=== PATIENT | female | born 1935 | race Caucasian/White ===

== ENCOUNTER 2018-12-04 08:23 | Outpatient (CLI) | payer MEDICARE, OTHER ==
[~2018-12-04] VITALS: Ht 175.3 cm; Wt 60.3 kg
[2018-12-04] VITALS (8 sets, daily range): BP systolic 145–167; BP diastolic 61–83
[~2018-12-04 08:23] MED LIST: ASPI-630 PO; CEFP200T PO; DIGO125T79 PO; LEVO25TA4 PO
[2018-12-04] MEDS ORDERED: MULT-650 PO (08:43)
[2018-12-04] MEDS ORDERED: APIX2.5T PO (08:43)
[2018-12-04] MEDS ORDERED: HYDR-2761 PO (08:43)
[2018-12-04 09:14] LABS: BASO # 0.1 x10^3/uL (0.0-0.2); BASO % 1 % (0-3); EOS # 0.2 x10^3/uL (0.0-0.7); EOS % 3 % (0-3); HEMATOCRIT 38.9 % (36.0-47.0); HEMOGLOBIN 12.7 g/dL (12.0-15.5); LYMPH # 1.3 x10^3/uL (1.0-4.8); LYMPH % 23 % (24-48); MEAN CORPUSCULAR HEMOGLOBIN 29 pg (25-35); MEAN CORPUSCULAR HGB CONC 33 g/dL (31-37); MEAN CORPUSCULAR VOLUME 89 fL (79-100); MONO # 0.5 x10^3/uL (0.0-1.1); MONO % 9 % (0-9); NEUT # 3.6 x10^3uL (1.8-7.7); NEUT % 65 % (31-73); PLATELET COUNT 277 x10^3/uL (140-400); RED CELL DISTRIBUTION WIDTH 13.5 % (11.5-14.5); WHITE BLOOD COUNT 5.6 x10^3/uL (4.0-11.0)
[2018-12-04] MEDS ORDERED: MIDAZOLAM HCL/PF 2 MG/2 ML VIAL. ONE ×2 (09:16→10:23)
[2018-12-04] MEDS ORDERED: fentaNYL PF VIAL 100 MCG/2 ML VIAL ONE ×2 (09:16→10:24)
[2018-12-04 09:20] LABS: CALCIUM 9.1 mg/dL (8.5-10.1); CREATININE 1.3 mg/dL (0.6-1.0); GFR 38.9
[2018-12-04 09:25] LABS: PROTHROMBIN TIME PATIENT 12.8 SEC (11.7-14.0)
[2018-12-04] MEDS ORDERED: MIDAZOLAM HCL/PF 2 MG/2 ML VIAL. IV ONE (09:30)
[2018-12-04] MEDS ORDERED: fentaNYL PF VIAL 100 MCG/2 ML VIAL IV ONE (09:30)
[2018-12-04] MEDS ORDERED: LIDOCAINE WITH 8.4% SOD BICARB 3 ML DISP.SYRIN. IJ ONE (09:30)
[2018-12-04] MEDS ORDERED: LIDOCAINE WITH 8.4% SOD BICARB 3 ML DISP.SYRIN. ONE (09:39)
[2018-12-04] MEDS ORDERED: CONTRAST GIVEN. MC PRN (09:45)
[2018-12-04] MEDS ORDERED: IOHEXOL 240 MG/ML 50ML VIAL. IJ ONE (09:45)
--- NOTE | 2018-12-04 10:38 | PDOC ---
BRIEF OPERATIVE NOTE Pre-Op Diagnosis L1 compression fracture, osteoporosis Post-Op Diagnosis same Procedure Performed L1 kyphoplasty Surgeon Anthony Anesthesia Type: Conscious Sedation Findings L1 compression fracture Complications No immediate WILBER NELSON MD Dec 04, 2018 10:38
--- NOTE | 2018-12-04 10:40 | PDOC ---
MODERATE SEDATION ASSESSMENT RISKS/ALTERNATIVES Risks/Alternatives Risks and alternatives of this type of sedation and procedure discussed with: RISK/ALTERNATIVES: Patient H & P ON CHART H & P H & P on chart and reviewed for co-morbid conditions and appropriate labs. H&P ON CHART: Yes STATUS PREG STATUS ASSESSED: Yes MEDS/ALLERGIES REVIEWED Meds/Allergies Reviewed Medications and Allergies including time and route of recently administered narcotics and sedatives. MEDS/ALLERGIES REVIEWED: Yes ASA RATING ASA RATING: II AIRWAY ASSESSMENT Airway Assessment Airway patency, oral function limitations, presence of caps, crowns, dentures, partials, and ability to extend neck assessed. AIRWAY ASSESSMENT: Yes MALLAMPATI SCORE MALLAMPATI SCORE: II PRE-SEDATION ASSESSMENT PRE-SEDATION ASSESSMENT: Yes WILBER NELSON MD Dec 04, 2018 10:40
--- NOTE | 2018-12-04 10:40 | PDOC1 ---
History and Physical Date of Procedure Date of Admission Procedure Procedure L1 kyphoplasty Indication Indication L1 compression fracture and osteoporosis Past Medical History Past Medical History see nursing pre-op assessment Current Medications Current Medications Current Medications Midazolam HCl (Versed) 2 mg STK-MED ONCE .ROUTE ; Start 12/04/18 at 09:16; Stop 12/04/18 at 09:17; Status DC Fentanyl Citrate (Fentanyl 2ml Vial) 100 mcg STK-MED ONCE .ROUTE ; Start 12/04/18 at 09:16; Stop 12/04/18 at 09:17; Status DC Lidocaine/Sodium Bicarbonate (Buffered Lidocaine 1%) 3 ml 1X ONCE IJ ; Start 12/04/18 at 09:30; Stop 12/04/18 at 09:31; Status DC Midazolam HCl (Versed) 2 mg 1X ONCE IV ; Start 12/04/18 at 09:30; Stop 12/04/18 at 09:31; Status DC Fentanyl Citrate (Fentanyl 2ml Vial) 100 mcg 1X ONCE IV ; Start 12/04/18 at 09:30; Stop 12/04/18 at 09:31; Status DC Cefazolin Sodium 50 ml @ 100 mls/hr 1X ONCE IV Last administered on 12/04/18at 09:30; Start 12/04/18 at 09:30; Stop 12/04/18 at 09:59; Status DC Cefazolin Sodium 50 ml @ As Directed STK-MED ONCE IV ; Start 12/04/18 at 09:30; Stop 12/04/18 at 09:31; Status DC Iohexol (Omnipaque 240 Mg/ml) 50 ml 1X ONCE IJ ; Start 12/04/18 at 09:45; Stop 12/04/18 at 09:46; Status DC Lidocaine/Sodium Bicarbonate (Buffered Lidocaine 1%) 3 ml STK-MED ONCE .ROUTE ; Start 12/04/18 at 09:39; Stop 12/04/18 at 09:40; Status DC Info (CONTRAST GIVEN -- Rx MONITORING) 1 each PRN DAILY PRN MC SEE COMMENTS; Start 12/04/18 at 09:45; Stop 12/06/18 at 09:44 Midazolam HCl (Versed) 2 mg STK-MED ONCE .ROUTE ; Start 12/04/18 at 10:23; Stop 12/04/18 at 10:24; Status DC Fentanyl Citrate (Fentanyl 2ml Vial) 100 mcg STK-MED ONCE .ROUTE ; Start 12/04/18 at 10:24; Stop 12/04/18 at 10:25; Status DC Active Scripts Active Lanoxin (Digoxin) 125 Mcg Tablet 125 Mcg PO DAILY Reported Centrum Silver Women Tablet (Multivits-Min/Iron/FA/Lutein) 1 Each Tablet 1 Tab PO DAILY Hydrocodone-Apap 5-325 (Hydrocodone Bit/Acetaminophen) 1 Tab Tablet 0.5 Tab PO PRN Q6HRS PRN Eliquis (Apixaban) 2.5 Mg Tablet 2.5 Mg PO BID Levothyroxine Sodium 25 Mcg Tablet 1 Tab PO DAILY Allergies Allergies: Coded Allergies: No Known Drug Allergies (Unverified , 03/03/16) Physical Exam Vital Signs Vital Signs Date Time Temp Pulse Resp B/P (MAP) Pulse Ox O2 Delivery O2 Flow Rate FiO2 12/04/18 08:52 98.1 60 26 157/83 (107) 100 Room Air 98.1 Other see nursing pre-op assessment Assessment Assessment L1 compression fracture Plan Plan Kyphoplasty WILBER NELSON MD Dec 04, 2018 10:40
--- NOTE | 2018-12-04 12:41 | NUR ---
pt ambulated without difficulty. States back pain is gone. discharge paperwork reviewed with pt and family
--- NOTE | 2018-12-04 14:43 | RAD ---
Procedure: Kyphoplasty of L1 Clinical Indication: 83-year-old with acute debilitating wedge compression fracture of L1, osteoporosis. Sedation: Conscious sedation was administered with a total intraprocedural [id number] time of 25 minutes. The patient was monitored by a qualified independent observer throughout the time of sedation. Please refer to the medical record for exact doses of medications utilized to achieve moderate sedation. Antibiotics: Antibiotic was administered intravenously within 1 hour of the procedure start time. Exposure: Kerma-Area Product: 1881 uGycm2 Sterility: The procedure was performed in its entirety using appropriate elements of sterile technique. Consent: The procedure was explained in its entirety to the patient or the patients designated personal financial representative by a member of the treatment team, including a discussion of the risks, benefits and commonly accepted alternatives to the procedure, as well as the expected consequences of no therapy whatsoever. Discussion of the risks included, but was not limited to, those that are most frequent and those that are rare but possibly severe or life-threatening, as well as the possibility of unforeseen complications. Technique and Findings: Following informed consent, the patient was prepped and draped in usual sterile fashion. 1% lidocaine was used to achieve local anesthesia over the left paraspinal soft tissues. A small dermatotomy was made. Under fluoroscopic guidance, a 10-gauge kyphoplasty needle was advanced in a left transpedicular fashion to the anterior aspect of the L1 vertebral body. A balloon was then used to create a cavity within the vertebral body. Polymethylmethacrylate was instilled throughout the vertebral body. Upon completion, the needle was removed and hemostasis was achieved with manual compression. Complications: No immediate Impression: 1. Fluoroscopic guided kyphoplasty of L1 as described.
== END 2018-12-04 13:04 | disposition home or self-care (01) ==
LOC: INTRAD 08:23
PROVIDERS: ATTEND Surgery
DX: M80.88XA Other osteoporosis with current pathological fracture, vertebra(e), initial encounter for fracture (principal); M54.5 Low back pain; Z79.899 Other long term (current) drug therapy; Z79.01 Long term (current) use of anticoagulants
CPT/HCPCS: 22514; 36415; 80048; 85025; 85610; 99152; 99153; C1713; C1725; C1892; J0690; J2250; J3010; Q9966

== ENCOUNTER → 2021-08-04 | Outpatient (CLI) | payer MEDICARE, OTHER ==
[~2021-08-04] VITALS: Ht 175.3 cm; Wt 59.0 kg
[~2021-08-04] MED LIST changes: +ANAS1TAB47 PO; +APIX2.5T PO; +DRON400T6 PO; +HYDR-2761 PO; +IOHEXOL 240 MG/ML 50ML VIAL. IJ ONE; +IOHEXOL 240 MG/ML 50ML VIAL. ONE; +LIDOCAINE WITH 8.4% SOD BICARB 3 ML DISP.SYRIN. IJ ONE; +LIDOCAINE WITH 8.4% SOD BICARB 3 ML DISP.SYRIN. ONE; +MIDAZOLAM HCL/PF 2 MG/2 ML VIAL. IV ONE; +MIDAZOLAM HCL/PF 2 MG/2 ML VIAL. ONE; +MULT-650 PO; +ceFAZolin SODIUM IV Push 1 GM VIAL. IVP ONE; +fentaNYL PF VIAL 100 MCG/2 ML VIAL IV ONE; +fentaNYL PF VIAL 100 MCG/2 ML VIAL ONE
[2021-08-04 10:36] VITALS: BP 156/66
--- NOTE | 2021-08-04 11:08 | RAD ---
EXAM: Chest, single view. HISTORY: Port placement. COMPARISON: Thoracic spine CT dated 08/03/2021 FINDINGS: A frontal view of the chest is obtained. There is a right chest wall port catheter with the tip overlying the expected location of the superior cavoatrial junction. There is a right perihilar mass or masslike consolidation. There is emphysema. The heart is normal in size. 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 There is a cardiac pacemaker. There is no pneum othorax or pleural effusion. IMPRESSION: 1. Right port catheter with the tip overlying expected location of the superior cavoatrial junction. 2. Right perihilar mass or masslike consolidation superimposed on emphysema. Electronically signed by: Kaykay Polanco MD (08/04/2021 11:06 AM) [id number]
[2021-08-04 11:17] LABS: BASO % 1 % (0-3); EOS # 0.2 x10^3/uL (0.0-0.7); EOS % 4 % (0-3); HEMATOCRIT 39.7 % (36.0-47.0); HEMOGLOBIN 12.8 g/dL (12.0-15.5); LYMPH # 1.1 x10^3/uL (1.0-4.8); LYMPH % 20 % (24-48); MEAN CORPUSCULAR HEMOGLOBIN 30 pg (25-35); MEAN CORPUSCULAR HGB CONC 32 g/dL (31-37); MEAN CORPUSCULAR VOLUME 91 fL (79-100); MONO # 0.5 x10^3/uL (0.0-1.1); MONO % 9 % (0-9); NEUT # 3.5 x10^3/uL (1.8-7.7); NEUT % 66 % (31-73); PLATELET COUNT 167 x10^3/uL (140-400); RED BLOOD COUNT 4.35 x10^6/uL (3.50-5.40); RED CELL DISTRIBUTION WIDTH 15.1 % (11.5-14.5); WHITE BLOOD COUNT 5.3 x10^3/uL (4.0-11.0)
[2021-08-04 11:19] LABS: PROTHROMBIN TIME PATIENT 12.4 SEC (11.7-14.0)
[2021-08-04 12:25] VITALS: BP 152/70
[2021-08-04 12:40] VITALS: BP 140/68
[2021-08-04 12:55] VITALS: BP 133/60
[2021-08-04 13:08] VITALS: BP 126/61
--- NOTE | 2021-08-05 14:41 | RAD ---
08/05/2021 PROCEDURES: 1. Fluoroscopic guided T8 kyphoplasty. Clinical Indication: Pathologic compression fracture of the T8 vertebral body secondary to osteoporos is. Patient has severe pain, refractory to conservative treatment measures, preventing normal activit ies of daily living. Consent: The procedure was explained in its entirety to the patient or the patients designated repres entative by a member of the treatment team, including a discussion of the risks, benefits and commonl y accepted alternatives to the procedure, as well as the expected consequences of no therapy whatsoev er. Discussion of the risks included, but was not limited to, those that are most frequent and thos e that are rare but possibly severe or life-threatening, as well as the possibility of unforeseen com plications. The posterior thorax was prepped and draped using maximal sterile technique and 1% Xylocaine used for local topical anesthesia and deep periosteal anesthesia. Pre-procedural antibiotics were administer ed. Sedation: Conscious sedation was performed for 43 minutes. Sedation was carried out while the patie nt was continually monitored by a member of the Radiology nursing staff. Continual cardiopulmonary m onitoring was carried out during the procedure. The patient tolerated the procedure well and there w ere no immediate complications. Utilizing careful fluoroscopic biplane positioning, the T8 pedicles were identified. Using a left sided unilateral approach, a trocar needle was advanced into the anterior third of the T 8 vertebral body. Needle placement was confirmed in both the AP and lateral projections. Next the introducer stylet was removed. A kyphoplasty balloon was placed into the vertebral body and the coaxial needle was withdrawn. The balloon was inflated under fluoroscopic guidance to insure that there was no damage to the vertebral body endplates. When an adequate cavity had been formed by the ballon it was deflated and removed through the coaxial needle. Under very careful biplane fluoroscopic guidance, polymethylmethacrylate was carefully injected into the T8 vertebral body filling the cavity formed by the balloon as well as some of the surrounding tra beculae. No abnormal extravasation was identified. Following the cement injections, the needle was removed, pressure placed, and hemostasis obtained. No evidence of cement extrusion into the tract was identified. No immediate complications were identifi ed. Total fluoroscopy time: 9.8 minutes Dose area product 82.9 Johnston centimeter squared IMPRESSION: Fluoroscopically guided kyphoplasty, T8 Electronically signed by: Jose Francisco Randall MD (08/05/2021 2:39 PM) [id number]
== END | disposition home or self-care (01) ==
LOC: INTRAD 10:02
PROVIDERS: ATTEND Physical Medicine & Rehabilitation
DX: S22.060A Wedge compression fracture of T7-T8 vertebra, initial encounter for closed fracture (principal); I48.91 Unspecified atrial fibrillation; I10 Essential (primary) hypertension; E03.9 Hypothyroidism, unspecified; Z79.899 Other long term (current) drug therapy; Z98.890 Other specified postprocedural states; X58.XXXA Exposure to other specified factors, initial encounter; Y93.89 Activity, other specified; Y92.89 Other specified places as the place of occurrence of the external cause; Y99.8 Other external cause status
CPT/HCPCS: 22513; 36415; 71045; 85025; 85610; 99152; 99153; C1713; J0690; J2250; J3010; J3490; Q9966

== ENCOUNTER → 2021-09-08 | Outpatient (CLI) | payer MEDICARE, OTHER ==
[2021-08-04 13:08] VITALS: BP 126/61
[~2021-09-08] MED LIST changes: +IBUP200C9 PO; +IOHEXOL 180 MG/ML 10 ML VIAL. ONE; -IOHEXOL 240 MG/ML 50ML VIAL. IJ ONE; -IOHEXOL 240 MG/ML 50ML VIAL. ONE; -LIDOCAINE WITH 8.4% SOD BICARB 3 ML DISP.SYRIN. IJ ONE; -LIDOCAINE WITH 8.4% SOD BICARB 3 ML DISP.SYRIN. ONE; -MIDAZOLAM HCL/PF 2 MG/2 ML VIAL. IV ONE; -MIDAZOLAM HCL/PF 2 MG/2 ML VIAL. ONE; -ceFAZolin SODIUM IV Push 1 GM VIAL. IVP ONE; -fentaNYL PF VIAL 100 MCG/2 ML VIAL IV ONE; -fentaNYL PF VIAL 100 MCG/2 ML VIAL ONE; +methylPREDNISolone ACETATE 80 MG/ML VIAL. ONE
--- NOTE | 2021-09-08 12:03 | PDOC1 ---
INITIAL PAIN CONSULT DATE OF SERVICE: DOS: DATE: 09/08/21 TIME: 11:55 CHIEF COMPLAINT: Chief Complaint: Mid back and bilateral flank pain HISTORY OF PRESENT ILLNESS: 85-year-old female presents with history of pain mid back for about 1 month not result of any specific injury or accident that she is aware of, but had a T8 compression fracture diagnosed which has since been treated earlier this month with a vertebroplasty. Patient reports the procedure went well but the pain is still persistent. Patient was sent to a pain clinic at outside facility and received an injection in her back but reports it did not have any effect. Patient reports that she still has significant pain in the mid upper back in the midline for the most part but radiates to the bilateral right and left flanks wi th activity bending walking standing change positions better with sitting or laying down generally does not awaken her from sleep at night when she is changing positions especially standing for prolonged periods or twisting or bending with the upper back and she notices the pain much more patient also feels that she is slightly off balance and feels somewhat unstable when the pain is at its worse with walking but is not had any falls or stumbling. Patient reports it is not effective bowel bladder control but does affect her ability to walk. Patient is denied any other treatments except for the vertebroplasty also is doing some stretching on her own and using ice packs as well. Patient is taking hydrocodone which does decrease the pain to a moderate extent and ibuprofen which helps but only very minimally as well. 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 PAST MEDICAL HISTORY: PMH: Hypothyroidism, arthritis, breast cancer status post chemotherapy and radiation PREVIOUS SURGERIES: Past Surgical Hx: Pacemaker placement, partial hysterectomy, appendectomy, T8 kyphoplasty CURRENT MEDICATIONS: Current Meds: Active Scripts Medications Dose Route/Sig Max Daily Dose Days Date Category Advil (Ibuprofen) 200 Mg Capsule 200 Mg PO PRN PRN 09/08/21 Reported Multaq (Dronedarone Hcl) 400 Mg Tablet 1 Tab PO BID 08/04/21 Reported Centrum Silver Women Tablet (Multivits-Min/Iron/FA/Lutein) 1 Each Tablet 1 Tab PO DAILY 12/04/18 Reported Hydrocodone-Apap 5-325 (Hydrocodone Bit/Acetaminophen) 1 Tab Tablet 0.5 Tab PO PRN Q6HRS PRN 12/04/18 Reported Levothyroxine Sodium 25 Mcg Tablet 1 Tab PO DAILY 03/03/16 Reported ALLERGIES; Allergies: Coded Allergies: No Known Drug Allergies (Unverified , 03/03/16) FAMILY HISTORY: Family Hx: No major medical problems or conditions that she lists. SOCIAL HISTORY: Social Hx: Patient is nondrug alcohol does not smoke not use any illegal illicit or recreational drugs is lives with her spouse and 1 adult child living at home and lives locally in [facility]. REVIEW OF SYSTEMS: ROS: Positive for those items mentioned in history of present illness, all systems are reviewed, otherwise negative ,and are complete full and well-documented on patient's chart. PHYSICAL EXAM: VS: Blood pressure is 152/80 pulse 77 respirations 18 temperature 98.7 F height 5 feet 9 inches weight is 128 pounds PE: PHYSICAL EXAMINATION: GENERAL: The patient is awake, alert, oriented, appropriate, very pleasant in demeanor HEENT: Shows normocephalic, atraumatic. Extraocular movements are intact and symmetrical. Oral cavity: Mucous membranes moist and pink. NECK: Shows anterior throat supple without palpable lymphadenopathy noted. Swallow reflex symmetrical. CHEST: Shows normal on inspection. Breath sounds are clear bilaterally, no rales rhonchi or wheezes auscultated. HEART: Shows S1, S2 clear. No murmurs auscultated. ABDOMEN: Soft, nontender, nondistended. No palpable organomegaly is noted. BACK: Shows spine grossly in the midline. Normal-appearing cervical lordotic curvature. There is slightly increased thoracic kyphosis, some minor flattening of the lumbar lordotic curvature. Thoracic paraspinous muscles show symmetrical inspection fairly firm in the mid upper distribution of the paraspinous musculature but without specific trigger points. Spinous processes themselves show significant tenderness in the mid distribution of the thoracic spine as well as the mid to lower distribution still fairly tender over the spinous processes in the midline but without specific radiation on palpation. Patient shows good rotation motion of the thoracic spine with some moderate tenderness with extension as well as with forward flexion in the mid lower thoracic distribution but without specific radiation. Lumbar paraspinous muscles show symmetrical on inspection, on palpation shows some moderate tenderness diffusely throughout the upper, middle and lower distribution of the paraspinous muscles without specific trigger points, without radiation of pain. The patient has good rotational motion of the lumbar spine, both laterally as well as extension and flexion without significant difficulty. No tenderness over the spinous processes, sacrum or sacroiliac regions. EXTREMITIES: Lower extremities show deep tendon reflexes 2+ in the patellar and tendo calcaneus tendons. Motor exam is 5 on a scale of 5 with right dorsiflexion, extension, quadriceps and hamstring flexion and 5/5 on the left. Peripheral pulses are 1+ posterior tibial. No peripheral edema is noted bilaterally. Lower extremities are warm and dry to touch, equal in color and appearance. Upper extremity show deep tendon reflexes 2+ in the bicep tricep tendons, motor exam is strong with clinical specialist vascular strength rated 5 out of 5 as is bicep and tricep flexion bilaterally. SKIN: Shows warm and dry, good turgor. No edema. No sores, rashes or bruising throughout. IMPRESSION: Impression: 85-year-old female with approximate 1 month history of pain mid upper back status post kyphoplasty with T8 compression fracture, with persistent thoracic pain and radiculopathy bilaterally. Plain films thoracic spine as noted Arthritis Osteopenia History of breast cancer Plan: Options were discussed with the patient and patient's who accompanied her visit today including conservative medical management continued physical therapies and interventional techniques. Patient would like to pursue interventional techniques. We discussed a thoracic epidural steroid injection using descriptions as well as anatomical models to describe the procedure. Risks were discussed including but not limited to: Bleeding, infection, possibility of epidural hematoma and subsequent neurological compromise, dural puncture, headaches, spinal cord and/or nerve damage, side effects of steroid medication, and poor results regarding pain control. Patient understands and wished to proceed. Patient will return to clinic in approximately 2 weeks for follow-up, was counseled as to return appointment, activity level, and side effect to be aware of. Procedure is thoracic epidural steroid injection under local anesthetic using sterile prep and drape at the T7-8 level using C-arm fluoroscopic guidance in both AP and lateral views medications injected is 120 mg Depo-Medrol +10mL preservative-free normal saline and 2 mL contrast- condition at discharge is stable patient tolerated procedure well had no complications. RAJI RICKS MD Sep 08, 2021 12:03
--- NOTE | 2021-09-08 12:04 | PDOC4 ---
Procedure Note: ICD 10 Code: ICD 10 Code: M54.14 S22.000 Procedure Note: Patient was consented for thoracic epidural steroid injection with fluoroscopic guidance. Risks were discussed including but not limited to: Bleeding, infection, possibility of epidural hematoma and subsequent neurological compromise, dural puncture, headaches, spinal cord and/or nerve damage, side effects of steroid medication, and poor results regarding pain control. Patient understands and wished to proceed. Procedure is thoracic epidural steroid injection under local anesthetic using sterile prep and drape at the T7-8 level using C-arm fluoroscopic guidance in both AP and lateral views medications injected is 120 mg Depo-Medrol +10mL preservative-free normal saline and 2 mL contrast- condition at discharge is stable patient tolerated procedure well had no complications. RAJI RICKS MD Sep 08, 2021 12:03
== END | disposition home or self-care (01) ==
LOC: PNCL 09:41
PROVIDERS: ATTEND Anesthesiology
DX: M54.14 Radiculopathy, thoracic region (principal); R10.9 Unspecified abdominal pain; E03.9 Hypothyroidism, unspecified; M19.90 Unspecified osteoarthritis, unspecified site; Z85.3 Personal history of malignant neoplasm of breast; Z90.710 Acquired absence of both cervix and uterus; Z98.890 Other specified postprocedural states; Z79.899 Other long term (current) drug therapy
CPT/HCPCS: 62321; J1040; Q9965

== ENCOUNTER 2021-09-16 14:45 | Inpatient (IN) | payer MEDICARE, OTHER ==
[~2021-09-16] VITALS: Ht 175.3 cm; Wt 58.0 kg
[~2021-09-16 14:45] MED LIST changes: -IOHEXOL 180 MG/ML 10 ML VIAL. ONE; -methylPREDNISolone ACETATE 80 MG/ML VIAL. ONE
[2021-09-16 15:20] VITALS: BP 137/70
[2021-09-16] MEDS ORDERED: BISACODYL 10 MG SUPP.RECT. PR PRN (15:45)
[2021-09-16] MEDS ORDERED: ACETAMINOPHEN 650 MG SUPP.RECT. PR PRN (15:45)
[2021-09-16] MEDS ORDERED: fentaNYL PF VIAL 100 MCG/2 ML VIAL IVP PRN ×3 (15:45→16:00)
--- NOTE | 2021-09-16 15:46 | PDOC1 ---
History and Physical Date of Admission Date of Admission DATE: 09/16/21 TIME: 15:44 Identification/Chief Complaint Chief Complaint Abdominal pain Source Source: Chart review, Patient History of Present Illness History of Present Illness Ms Temple is an 85-year-old female with a past medical history significant for adenocarcinoma of right lung s/p radiation, paroxysmal afib and SSS (bradycardia arrhythmia with pacemaker), hypothyroidism, prior hemorrhagic CVA 2016 who presents to the emergency department at [facility] in [place], [place] c/o severe abdominal pain and constipation. C/o no BM for 4 days. Notes pain is 6 out of 10, dull and achy in nature. Has associated distention. Denies any recent travel, traumas, illnesses, fevers, chest pain, shortness of breath nausea diarrhea, dysuria, hematuria or blood in the stool. Denies any numbness/weakness/tingling. No change in diet. She did have an L1 fracture 5 weeks prior to admit and is s/o kyphoplasty but had persistent pain and had an LESI from pain management and has since been started on hydrocodone. WBC 11.6, Hb 13.5, platelets 150, NA 135, K4.4, BUN 54, CR 1.2, glucose 131, lactate 1, calcium 8.3, bilirubin 0.5, AST 23, ALT 45, alk phos 79, high- sensitivity troponin is 20, CRP is 160, albumin 2.7, lipase 115, rapid COVID-19 negative, rapid influenza negative, COVID-19 PCR negative, urinalysis bland. EKG sinus rate 81 bpm with some PVCs. QTc [address] abdomen with dilated small bowel with a transition zone suggesting partial small bowel obstruction. Chest radiograph with emphysema and right upper lobe cavitary lesion. Due to worsening of her abdominal pain a repeat CT abdomen/pelvis was performed without contrast which revealed intraperitoneal free air concerning for perforation of small bowel. Swirled appearance of the mesenteric root and mildly dilated lower abdominal small bowel loops concerning for small bowel volvulus or internal hernia. She was transferred to [facility] for further surgical evaluation. Seen bedside she complains of no pain and notes she just had 2 bowel movements. Does still have pain on palpation and distention of her abdomen. Past Medical History Cardiovascular: AFIB Pulmonary: No pertinent hx CENTRAL NERVOUS SYSTEM: CVA, Dementia Heme/Onc: Cancer (lung) Hepatobiliary: No pertinent hx Psych: No pertinent hx Musculoskeletal: low back pain, Weakness Rheumatologic: No pertinent hx Infectious disease: No pertinent hx Renal/: No pertinent hx Endocrine: Hypothyroidism Past Surgical History Past Surgical History: Appendectomy, Other Family History Family History: Other Social History Smoke: Quit ALCOHOL: none Drugs: None Current Medications Current Medications Active Scripts Active Reported Advil (Ibuprofen) 200 Mg Capsule 200 Mg PO PRN PRN Multaq (Dronedarone Hcl) 400 Mg Tablet 1 Tab PO BID Centrum Silver Women Tablet (Multivits-Min/Iron/FA/Lutein) 1 Each Tablet 1 Tab PO DAILY Hydrocodone-Apap 5-325 (Hydrocodone Bit/Acetaminophen) 1 Tab Tablet 0.5 Tab PO PRN Q6HRS PRN Levothyroxine Sodium 25 Mcg Tablet 1 Tab PO DAILY Allergies Allergies: Coded Allergies: No Known Drug Allergies (Unverified , 03/03/16) ROS General: No: Chills, Night Sweats, Fatigue, Malaise, Appetite, Other PSYCHOLOGICAL ROS: No: Anxiety, Behavioral Disorder, Concentration difficultie, Decreased libido, Depression, Disorientation, Hallucinations, Hostility, Irri tablity, Memory difficulties, Mood Swings, Obsessive thoughts, Physical abuse, Sexual abuse, Sleep disturbances, Suicidal ideation, Other Eyes: No Blurry vision, No Decreased vision, No Double vision, No Dry eyes, No Excessive tearing, No Eye Pain, No Itchy Eyes, No Loss of vision, No Photophobia, No Scotomata, No Uses contacts, No Uses glasses, No Other HEENT: No: Heacaches, Visual Changes, Hearing change, Nasal congestion, Nasal discharge, Oral lesions, Sinus pain, Sore Throat, Epistaxis, Sneezing, Snoring, Tinnitus, Vertigo, Vocal changes, Other ALLERGY AND IMMUNOLOGY: No: Hives, Insect Bite Sensitivity, Itchy/Watery Eyes, Nasal Congestion, Post Nasal Drip, Seasonal Allergies, Other Hematological and Lymphatic: No: Bleeding Problems, Blood Clots, Blood Transfusions, Brusing, Night Sweats, Pallor, Swollen Lymph Nodes, Other ENDOCRINE: No: Breast Changes, Galactorrhea, Hair Pattern Changes, Hot Flashes, Malaise/lethargy, Mood Swings, Palpitations, Polydipsia/polyuria, Skin Changes, Temperature Intolerance, Unexpected Weight Changes, Other Respiratory: YES: Shortness of breath; No: Cough, Hemoptysis, Orthopnea, Pleuritic Pain, SOB with excertion, Sputum Changes, Stridor, Tachypnea, Wheezing, Other Cardiovascular: No Chest Pain, No Palpitations, No Orthopnea, No Paroxysmal Noc. Dyspnea, No Edema, No Lt Headedness, No Other Gastrointestinal: Yes Nausea, Yes Abdominal Pain, Yes Constipation; No Vomiting, No Diarrhea, No Melena, No Hematochezia, No Other Genitourinary: No Dysuria, No Frequency, No Incontinence, No Hematuria, No Retention, No Discharge, No Urgency, No Pain, No Flank Pain, No Other, No , No , No , No , No , No , No Musculoskeletal: No Gait Disturbance, No Joint Pain, No Joint Stiffness, No Joint Swelling, No Muscle Pain, No Muscular Weakness, No Pain In:, No Swelling In:, No Other Neurological: No Behavorial Changes, No Bowel/Bladder ControlChng, No Confusion, No Dizziness, No Gait Disturbance, No Headaches, No Impaired Coord/ba barbara, No Memory Loss, No Numbness/Tingling, No Seizures, No Speech Problems, No Tremors, No Visual Changes, No Weakness, No Other Skin: No Dry Skin, No Eczema, No Hair Changes, No Lumps, No Mole Changes, No Mottling, No Nail Changes, No Pruritus, No Rash, No Skin Lesion Changes, No Other, No Acne Physical Exam General: Alert, Cooperative, mild distress HEENT: Atraumatic, PERRLA, EOMI, Mucous membr. moist/pink Lungs: Other (bilateral scattered wheezes) Heart: S1S2, RRR, no thrills, no rubs, no gallops, no murmurs Abdomen: Soft, No hepatosplenomegaly, No masses, Other (decreased bowel sounds, LLQ tender) Rectal Exam: not examined Extremities: No clubbing, No cyanosis, No edema, Normal pulses, No tend erness/swelling Skin: No rashes, No breakdown, No significant lesion Neuro: Normal gait, Normal speech, Strength at 5/5 X4 ext, Normal tone, Sensation intact, Cranial nerves 3-12 NL, Reflexes 2+ Psych/Mental Status: Mental status NL, Mood NL Images Images CT OF THE ABDOMEN AND PELVIS WITH IV CONTRAST. There is patchy opacity in the right lung base medially. There is multiple dilated loops of proximal and mid small bowel and more collapsed distal small bowel with a transition zone seen anteriorly in left pelvis image #[id number]. The appendix is not well seen. The gallbladder appears normal. Liver: Unremarkable Spleen: Unremarkable Pancreas: Unremarkable Adrenal Glands: Unremarkable Kidneys: Bilateral cysts There is no mass or lymphadenopathy. There is no free air. There is no free fluid. The urinary bladder contains a small amount of air but otherwise appears normal. There is an old L1 vertebral body compression fracture with previous vertebroplasty. Impression: 1. Right basilar infiltrate could be discoid atelectasis or early pneumonia. 2. Air in the urinary bladder is likely from instrumentation. There is also small focus of air in the endometrial uterus which could be iatrogenic. 3. Dilated small bowel with a transition zone suggesting partial small bowel obstruction. Chest radiograph: COMPARISON: 02/13/2020. FINDINGS: A frontal view of the chest is obtained. A right-sided port catheter has its tip in the superior cavoatrial junction. A left-sided pacemaker has its leads in the right atrium and right ventricle. A cavitary lesion within the superior segment of the right lower lobe measures approximately 5.5 cm and is better seen on CT. Hyperinflation is consistent with chronic obstructive pulmonary disease. There is mild right volume loss. There is no pneumothorax or pleural effusion. The heart is not enlarged. There are atherosclerotic calcifications of the aorta. An atrial appendage closure clip and mid thoracic vertebroplasty changes are noted. IMPRESSION: 1. Refer to prior CT for description of a right-sided cavitary lesion. Ongoing follow-up is recommended. 2. Chronic obstructive pulmonary disease. CT ABDOMEN+PELVIS WO History: Pain improved, question partial small bowel obstruction resolution. Comparison: CT abdomen and pelvis 09/16/2021. Technique: Noncontrast CT of the abdomen and pelvis. Findings: Posterior right lower lobe bleb/pulmonary cyst with adjacent mild bronchiectas is. Dual chamber pacemaker leads. Atrial appendage clip seen on road equipment operator view only. The liver is unremarkable. Layering density within the gallbladder, likely vicarious contrast excretion. The pancreas, spleen and adrenal glands are unremarkable. Mild renal cortical atrophy. Bilateral excretory nephrograms ureters are unremarkable. Bilateral renal cysts. The bladder is within normal limits. Uterus and adnexa are unremarkable. There are scattered foci of anterior dependent free air in the abdomen and pelvis. Trace pelvic free fluid. Mild mesenteric inflammation. The stomach is unremarkable. Small bowel loops appear mildly distended, perhaps less conspicuous than comparison, possible transition point in the right upper pelvis (axial 78). There is a swirling appearance of the lower small bowel mesentery concerning for internal hernia or volvulus. Fluid within the ascending colon. No colonic wall thickening. Mild descending and sigmoid diverticulosis. Unopacified vasculature demonstrates atherosclerotic calcification. No adenopathy. Decreased osseous mineralization in the spine and pelvis. Multilevel degenerative changes. Kyphoplasty changes at L1. Impression: 1. Intraperitoneal free air concerning for perforation of small bowel. Swirled appearance of the mesenteric root and mildly dilated lower abdominal small bowel loops concerning for small bowel volvulus or internal hernia. VTE Prophylaxis Ordered VTE Prophylaxis Devices: Yes VTE Pharmacological Prophylaxi: Yes Assessment/Plan Assessment/Plan A/P: SBO - noted on CT. Keep NPO. General surgery consulted. IV pain and nausea control Free air in abdomen - likely microperforation from diverticulum. Will monitor. IV zosyn. supportive care, surgery consult Constipation - had a BM immediately upon arrival, may be starting to resolve already Fatigue - check TSH, dosing of levothyroxine Abnormal UA - will f/u culture results Abnormal CXR - likely from prior history of lung ca treatment. Patient and her are vague about the details H/o CVA - prior left basal ganglia hemorrhage 2016 Paroxsymal Afib s/p pacemaker, atrial appendage clipping. Sinus currently Hypothyroidism - on levothyroxine, will check TSH H/o adenocarcinoma of right lung s/p radiation SSS (bradycardia arrhythmia with pacemaker) FEN - NPO PPX - Heparin FULL CODE Dispo -inpatient Justifications for Admission Other Justification MEGHA BRUCE MD Sep 16, 2021 15:46
[2021-09-16] MEDS ORDERED: MORPHINE SULFATE 2 MG/ML INJ. IVP PRN (16:00)
[2021-09-16] MEDS ORDERED: PROCHLORPERAZINE 10 MG/2 ML VIAL. IVP PRN (16:00)
[2021-09-16] MEDS ORDERED: HYDROmorphone 2 MG/ML INJ. IVP PRN (16:00)
[2021-09-16] MEDS ORDERED: IV RINGERS,LACTATED 1000ML 1,000 ML IV SCH (16:00)
[2021-09-16] MEDS: HEPARIN for SUB-Q USE 5,000 UNIT/ML VIAL. SQ SCH ×2 (16:00→22:30)
[2021-09-16] MEDS: POTASSIUM CL 20MEQ D5-0.45NACL 1,000 ML IV SCH (16:55)
[2021-09-16] MEDS: PIPERACILLIN/TAZOBACTAM 3.375 GM in IV NORMAL SALINE 50ML 50 ML IV SCH (16:55)
--- NOTE | 2021-09-16 18:55 | PDOC2 ---
CONSULT Date of Consult Date of Consult DATE: 09/16/21 TIME: 18:49 Reason for Consult Reason for Consult: Abnormal CT scan findings Referring Physician Referring Physician: Jose Identification/Chief Complaint Chief Complaint Not been able to have a bowel movement for 4 days Source Source: Chart review, Patient History of Present Illness Reason for Visit: 85-year-old female who has been having several day history of abdominal pain and back pain she has a known history of compression fractures and gets injections in this area but she also states she has had not had a bowel movement for 4 days came to the emergency department for further evaluation initially within the emergency department a CT scan was performed which showed signs consistent with a small bowel obstruction or ileus. Patient subsequently had 2 large moderately formed bowel movements she states she had quite a bit of pain while having the bowel movements but once the bowel movements were finished she felt much better. Emergency room physician decided to order another CT scan which showed small amount of intraperitoneal air and concerns for possible internal hernia which was not read on the initial CT scan. Patient was transferred to [facility] for further evaluation and treatment. She is currently resting in bed quite cheerful she states she is no longer in any pain denies any nausea vomiting. And would like to go home Past Medical History Cardiovascular: AFIB Pulmonary: No pertinent hx CENTRAL NERVOUS SYSTEM: Dementia Heme/Onc: No pertinent hx Hepatobiliary: No pertinent hx Psych: No pertinent hx Musculoskeletal: low back pain, Weakness Rheumatologic: No pertinent hx Infectious disease: No pertinent hx Renal/: No pertinent hx Endocrine: Hypothyroidism Past Surgical History Past Surgical History: Appendectomy, Other Family History Family History: Other Social History ALCOHOL: none Drugs: None Lives: with Family Current Medications Current Medications Current Medications Piperacillin Sod/ Tazobactam Sod 3.375 gm/Sodium Chloride 50 ml @ 100 mls/hr Q6HRS IV Last administered on 09/16/21at 16:55; Start 09/16/21 at 16:00 Acetaminophen (Tylenol Supp) 650 mg PRN Q6HRS PRN [place] MILD PAIN / TEMP > 100.3'F; Start 09/16/21 at 15:45 Bisacodyl (Dulcolax Supp) 10 mg PRN DAILY PRN [place] CONSTIPATION; Start 09/16/21 at 15:45 Fentanyl Citrate (Fentanyl 2ml Vial) 25 mcg PRN Q3HRS PRN IVP SEVERE PAIN 7-10; Start 09/16/21 at 15:45 Olanzapine (ZyPREXA ZYDIS) 5 mg PRN BID PRN PO ANXIETY / AGITATION; Start 09/16/21 at 15:45 Potassium Chloride/Dextrose/ Sod Cl 1,000 ml @ 75 mls/hr [id number] IV Last administered on 09/16/21at 16:55; Start 09/16/21 at 15:45 Fentanyl Citrate (Fentanyl 2ml Vial) 25 mcg PRN Q5MIN PRN IVP MILD PAIN 1-3; Start 09/16/21 at 16:00; Stop 09/17/21 at 15:59 Fentanyl Citrate (Fentanyl 2ml Vial) 50 mcg PRN Q5MIN PRN IVP MODERATE PAIN 4- 6; Start 09/16/21 at 16:00; Stop 09/17/21 at 15:59 Morphine Sulfate (Morphine Sulfate) 1 mg PRN Q10MIN PRN IVP SEVERE PAIN 7-10; Start 09/16/21 at 16:00; Stop 09/17/21 at 15:59 Ringer's Solution 1,000 ml @ 30 mls/hr Q24H IV ; Start 09/16/21 at 16:00; Stop 09/17/21 at 03:59 Hydromorphone HCl (Dilaudid) 0.5 mg PRN Q10MIN PRN IVP SEVERE PAIN 7-10, 2nd CHOICE; Start 09/16/21 at 16:00; Stop 09/17/21 at 15:59 Prochlorperazine Edisylate (Compazine) 5 mg PACU PRN PRN IVP NAUSEA, MRX1; Start 09/16/21 at 16:00; Stop 09/17/21 at 15:59 Heparin Sodium (Porcine) (Heparin Sodium) 5,000 unit Q12HR SQ ; Start 09/16/21 at 16:00 Active Scripts Active Reported Advil (Ibuprofen) 200 Mg Capsule 200 Mg PO PRN PRN Multaq (Dronedarone Hcl) 400 Mg Tablet 1 Tab PO BID Centrum Silver Women Tablet (Multivits-Min/Iron/FA/Lutein) 1 Each Tablet 1 Tab PO DAILY Hydrocodone-Apap 5-325 (Hydrocodone Bit/Acetaminophen) 1 Tab Tablet 0.5 Tab PO PRN Q6HRS PRN Levothyroxine Sodium 25 Mcg Tablet 1 Tab PO DAILY Allergies Allergies: Coded Allergies: No Known Drug Allergies (Unverified , 03/03/16) ROS Gastrointestinal: Yes Abdominal Pain, Yes Constipation Physical Exam General: Alert, Cooperative, No acute distress HEENT: Atraumatic, PERRLA, EOMI Lungs: Clear to auscultation, Normal air movement Heart: Regular rate, No murmurs Abdomen: Normal bowel sounds, Soft, Other (Mildly tender left lower quadrant no peritoneal signs) Extremities: No edema Skin: No significant lesion Neuro: Normal speech Vitals VITALS Vital Signs Date Time Temp Pulse Resp B/P (MAP) Pulse Ox O2 Delivery O2 Flow Rate FiO2 09/16/21 15:20 97.3 69 18 137/70 (92) 92 Room Air 97.3 Assessment/Plan Assessment/Plan Patient is comfortable benign abdominal exam Many bacteria in the urine mildly elevated white count lactic acid normal Small amount of free air may been related to a microperforation of a diverticulum patient does not appear to have a surgical abdomen. Would monitor with supportive care NIMA YAN MD Sep 16, 2021 18:54
[2021-09-16 19:15] VITALS: BP 131/71
[2021-09-16 23:13] VITALS: BP 123/60
[2021-09-17 03:16] VITALS: BP 128/60
[2021-09-17] MEDS: POTASSIUM CL 20MEQ D5-0.45NACL 1,000 ML IV SCH ×2 (05:49→21:15)
[2021-09-17] MEDS: PIPERACILLIN/TAZOBACTAM 3.375 GM in IV NORMAL SALINE 50ML 50 ML IV SCH ×4 (05:50→17:23)
[2021-09-17 07:30] VITALS: BP 158/81
--- NOTE | 2021-09-17 08:31 | PDOC ---
SURGICAL PROGRESS NOTE DATE: 09/17/21 TIME: 08:30 Subjective Patient states she is feeling well has no pain she says she has had another bowel movement Vital Signs Vital Signs Date Time Temp Pulse Resp B/P (MAP) Pulse Ox O2 Delivery O2 Flow Rate FiO2 09/17/21 07:30 97.6 68 18 158/81 (106) 95 Room Air 97.6 I&O Intake and Output 09/17/21 07:00 Intake Total 0 ml Balance 0 ml Intake Oral 0 ml # Voids 3 PATIENT HAS A ZUNIGA: No General: Alert, Oriented X3, Cooperative, No acute distress Abdomen: Normal bowel sounds, Soft, No tenderness Assessment/Plan Benign abdominal exam. Stable from surgical standpoint no surgical plans at this time would favor discharge Justicifation of Admission Dx: Justifications for Admission: Justification of Admission Dx: N/A NIMA YAN MD Sep 17, 2021 08:31
[2021-09-17 08:43] LABS: ALBUMIN 2.4 g/dL (3.4-5.0); ALBUMIN/GLOBULIN RATIO 0.6 (1.0-1.7); BASO % 0 % (0-3); CALCIUM 8.1 mg/dL (8.5-10.1); CREATININE 1.1 mg/dL (0.6-1.0); EOS # 0.1 x10^3/uL (0.0-0.7); EOS % 1 % (0-3); HEMATOCRIT 39.3 % (36.0-47.0); HEMOGLOBIN 13.1 g/dL (12.0-15.5); LYMPH # 0.8 x10^3/uL (1.0-4.8); LYMPH % 10 % (24-48); MEAN CORPUSCULAR HEMOGLOBIN 30 pg (25-35); MEAN CORPUSCULAR HGB CONC 33 g/dL (31-37); MEAN CORPUSCULAR VOLUME 89 fL (79-100); MONO # 0.2 x10^3/uL (0.0-1.1); MONO % 3 % (0-9); NEUT # 6.9 x10^3/uL (1.8-7.7); NEUT % 87 % (31-73); PLATELET COUNT 170 x10^3/uL (140-400); RED BLOOD COUNT 4.39 x10^6/uL (3.50-5.40); RED CELL DISTRIBUTION WIDTH 14.8 % (11.5-14.5); TOTAL BILIRUBIN 0.9 mg/dL (0.2-1.0); TOTAL PROTEIN 6.2 g/dL (6.4-8.2)
[2021-09-17] MEDS: HEPARIN for SUB-Q USE 5,000 UNIT/ML VIAL. SQ SCH ×2 (09:53→21:21)
--- NOTE | 2021-09-17 09:57 | NUR ---
SW following. Discussed with RN, pt from home with , room air, NPO. Surgery following. RN advised pt gets around okay. No SW needs identified at this time. SW will continue to follow.
[2021-09-17 10:56] VITALS: BP 151/67
[2021-09-17 14:53] VITALS: BP 142/67
--- NOTE | 2021-09-17 17:25 | PDOC ---
[employer] PROGRESS NOTE Date of Service DOS: DATE: 09/17/21 TIME: 17:24 Chief Complaint Chief Complaint partial SBO - noted on CT. was NPO, start clears, she feels better Free air in abdomen - microperforation f IV zosyn. 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 Paroxsymal Afib s/p pacemaker, Hypothyroidism - on levothyroxine, History of Present Illness History of Present Illness feels improvd, some weakness, needs PT and OT, need assist to bathroom try clears, will adat, cont IV Fluid, abx, for now Vitals/I&O Vitals/I&O: Vital Signs Date Time Temp Pulse Resp B/P (MAP) Pulse Ox O2 Delivery O2 Flow Rate FiO2 09/17/21 14:53 97.6 75 18 142/67 (92) 96 Room Air 97.6 I & O 09/16/21 09/16/21 09/17/21 15:00 23:00 07:00 Intake Total 0 ml 0 ml Balance 0 ml 0 ml Physical Exam General: Alert, Oriented X3, Cooperative, No acute distress Heart: Regular rate, No murmurs Abdomen: Normal bowel sounds, Soft, No tenderness Extremities: No clubbing, No cyanosis, No edema, Normal pulses, No tenderness/swelling Skin: No rashes, No breakdown, No significant lesion Labs Labs: Laboratory Tests Test 09/17/21 07:05 White Blood Count 8.0 x10^3/uL (4.0-11.0) Red Blood Count 4.39 x10^6/uL (3.50-5.40) Hemoglobin 13.1 g/dL (12.0-15.5) Hematocrit 39.3 % (36.0-47.0) Mean Corpuscular Volume 89 fL (79-100) Mean Corpuscular Hemoglobin 30 pg (25-35) Mean Corpuscular Hemoglobin Concent 33 g/dL (31-37) Red Cell Distribution Width 14.8 % (11.5-14.5) Platelet Count 170 x10^3/uL (140-400) Neutrophils (%) (Auto) 87 % (31-73) Lymphocytes (%) (Auto) 10 % (24-48) Monocytes (%) (Auto) 3 % (0-9) Eosinophils (%) (Auto) 1 % (0-3) Basophils (%) (Auto) 0 % (0-3) Neutrophils # (Auto) 6.9 x10^3/uL (1.8-7.7) Lymphocytes # (Auto) 0.8 x10^3/uL (1.0-4.8) Monocytes # (Auto) 0.2 x10^3/uL (0.0-1.1) Eosinophils # (Auto) 0.1 x10^3/uL (0.0-0.7) Basophils # (Auto) 0.0 x10^3/uL (0.0-0.2) Sodium Level 136 mmol/L (136-145) Potassium Level 5.0 mmol/L (3.5-5.1) Chloride Level 105 mmol/L (98-107) Carbon Dioxide Level 25 mmol/L (21-32) Anion Gap 6 (6-14) Blood Urea Nitrogen 28 mg/dL (7-20) Creatinine 1.1 mg/dL (0.6-1.0) Estimated GFR (Cockcroft-Gault) 47.0 BUN/Creatinine Ratio 25 (6-20) Glucose Level 127 mg/dL (70-99) Calcium Level 8.1 mg/dL (8.5-10.1) Total Bilirubin 0.9 mg/dL (0.2-1.0) Aspartate Amino Transf (AST/SGOT) 10 U/L (15-37) Alanine Aminotransferase (ALT/SGPT) 35 U/L (14-59) Alkaline Phosphatase 75 U/L (46-116) Total Protein 6.2 g/dL (6.4-8.2) Albumin 2.4 g/dL (3.4-5.0) Albumin/Globulin Ratio 0.6 (1.0-1.7) Thyroid Stimulating Hormone (TSH) 2.643 uIU/mL (0.358-3.74) Comment Review of Relevant I have reviewed the following items ros (where applicable) has been applied. Justifications for Admission Abdominal Pain Indications Is patient in severe pain?: Yes Justification for admission: Patient has severe pain that requires (parenteral analgesic-please state analgesics and route) at least every 4 hours necessitating inpatient level of care. Is NPO status required?: Yes Justification for admission: Patient may require to be NPO for greater 24hours making it medically necessary to manage patient as inpatient. Other Justification JEOVANY VAZQUEZ MD Sep 17, 2021 17:25
[2021-09-17 19:15] VITALS: BP 185/81
[2021-09-17 23:38] VITALS: BP 138/67
[2021-09-18] MEDS: PIPERACILLIN/TAZOBACTAM 3.375 GM in IV NORMAL SALINE 50ML 50 ML IV SCH ×2 (00:01→06:09)
[2021-09-18 03:37] VITALS: BP 155/78
[2021-09-18 07:00] VITALS: BP 126/72
--- NOTE | 2021-09-18 08:29 | PDOC ---
SURGICAL PROGRESS NOTE DATE: 09/18/21 TIME: 08:28 Subjective bm yesterday tolerating clears no nausea Vital Signs Vital Signs Date Time Temp Pulse Resp B/P (MAP) Pulse Ox O2 Delivery O2 Flow Rate FiO2 09/18/21 07:57 Room Air 09/18/21 07:00 98.3 74 16 126/72 (90) 97 98.3 I&O Intake and Output 09/18/21 07:00 Intake Total 480 ml Balance 480 ml Intake Oral 480 ml # Voids 3 # Bowel Movements 1 General: Alert, Oriented X3, Cooperative Abdomen: Soft, No tenderness Labs Laboratory Tests Test 09/17/21 07:05 White Blood Count 8.0 x10^3/uL (4.0-11.0) Red Blood Count 4.39 x10^6/uL (3.50-5.40) Hemoglobin 13.1 g/dL (12.0-15.5) Hematocrit 39.3 % (36.0-47.0) Mean Corpuscular Volume 89 fL (79-100) Mean Corpuscular Hemoglobin 30 pg (25-35) Mean Corpuscular Hemoglobin Concent 33 g/dL (31-37) Red Cell Distribution Width 14.8 % (11.5-14.5) Platelet Count 170 x10^3/uL (140-400) Neutrophils (%) (Auto) 87 % (31-73) Lymphocytes (%) (Auto) 10 % (24-48) Monocytes (%) (Auto) 3 % (0-9) Eosinophils (%) (Auto) 1 % (0-3) Basophils (%) (Auto) 0 % (0-3) Neutrophils # (Auto) 6.9 x10^3/uL (1.8-7.7) Lymphocytes # (Auto) 0.8 x10^3/uL (1.0-4.8) Monocytes # (Auto) 0.2 x10^3/uL (0.0-1.1) Eosinophils # (Auto) 0.1 x10^3/uL (0.0-0.7) Basophils # (Auto) 0.0 x10^3/uL (0.0-0.2) Sodium Level 136 mmol/L (136-145) Potassium Level 5.0 mmol/L (3.5-5.1) Chloride Level 105 mmol/L (98-107) Carbon Dioxide Level 25 mmol/L (21-32) Anion Gap 6 (6-14) Blood Urea Nitrogen 28 mg/dL (7-20) Creatinine 1.1 mg/dL (0.6-1.0) Estimated GFR (Cockcroft-Gault) 47.0 BUN/Creatinine Ratio 25 (6-20) Glucose Level 127 mg/dL (70-99) Calcium Level 8.1 mg/dL (8.5-10.1) Total Bilirubin 0.9 mg/dL (0.2-1.0) Aspartate Amino Transf (AST/SGOT) 10 U/L (15-37) Alanine Aminotransferase (ALT/SGPT) 35 U/L (14-59) Alkaline Phosphatase 75 U/L (46-116) Total Protein 6.2 g/dL (6.4-8.2) Albumin 2.4 g/dL (3.4-5.0) Albumin/Globulin Ratio 0.6 (1.0-1.7) Thyroid Stimulating Hormone (TSH) 2.643 uIU/mL (0.358-3.74) Assessment/Plan advance diet dc per [facility]PC will sign off, please call with questions chart, round 15 min Justicifation of Admission Dx: Justifications for Admission: Justification of Admission Dx: N/A JOCELYNE DAVIS APRN Sep 18, 2021 08:29
[2021-09-18] MEDS: POTASSIUM CL 20MEQ D5-0.45NACL 1,000 ML IV SCH (09:08)
[2021-09-18] MEDS: HEPARIN for SUB-Q USE 5,000 UNIT/ML VIAL. SQ SCH (09:11)
--- NOTE | 2021-09-18 10:58 | SNU/HH DC ---
DISCHARGE WITH HOME HEALTH DISCHARGE INFORMATION: Discharge Date: Sep 18, 2021 Final Diagnosis: acute abd pain partial small bowel obs - noted on CT. was NPO, start clears, she feels better Free air in abdomen - microperforation f IV zosyn. 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 Paroxsymal Afib s/p pacemaker, Hypothyroidism - on levothyroxine, Condition on Discharge: Stable CODE STATUS: Code Status: Full HOME HEALTH: Face to Face: I certify this patient is under my care and that I had a face to face encounter that meets the physician face to face encounter requirements with this patient on 09/18 Medical Complications: Other (SBO) [facility] For: Assess & Educate Safety RN For Eval/Treatment: Yes Physical Therapy For: Evalulation/Treatment Occupational Therapy For: Evaluation/Treatment Pt Meets Homebound Status: Unsteady balance w/ amb,, Fatigue w/ amb. POST DISCHARGE ORDERS: Activity Instructions for Disc: No restrictions Weight Bearing Status after Di: No restrictions DIET AFTER DISCHARGE: Regular TREATMENT/EQUIPMENT ORDERS: Adaptive Equipment Issued: Cane CERTIFICATION STATEMENT: Certification Statement: Certification Statement: Based on the above finding, I certify that this patient is confined to the home and needs intermittent group home care, physical therapy and/or speech therapy, or continues to need occupational therapy.~ This patient is under my care, and I have initiated the establishment of the plan of care.~ This patient will be followed by myself or a community physician who will periodically review the plan of care. Home Meds Reported Medications Ibuprofen (ADVIL) 200 Mg Capsule, 200 MG PO PRN PRN for PAIN, CAP 09/08/21 Dronedarone Hcl (MULTAQ) 400 Mg Tablet, 1 TAB PO BID for antiarrythmic, #180 TAB 1 Refill 08/04/21 Multivits-Min/Iron/FA/Lutein (Centrum Silver Women Tablet) 1 Each Tablet, 1 TAB PO DAILY for Supplement, TAB 12/04/18 Levothyroxine Sodium (LEVOTHYROXINE SODIUM) 25 Mcg Tablet, 1 TAB PO DAILY, #30 TAB 5 Refills 03/03/16 Discontinued Reported Medications Hydrocodone Bit/Acetaminophen (HYDROCODONE-APAP 5-325 ) 1 Tab Tablet, 0.5 TAB PO PRN Q6HRS PRN for PAIN, TAB 0 Refills 12/04/18 JEOVANY VAZQUEZ MD Sep 18, 2021 10:58
[2021-09-18 11:00] VITALS: BP 132/72
--- NOTE | 2021-09-18 11:04 | PDOC3 ---
Discharge Summary Visit Information Date of Admission: Sep 16, 2021 Date of Discharge: Sep 18, 2021 Final Diagnosis partial SBO - noted on CT. was NPO, start clears, she feels better Free air in abdomen - microperforation f IV zosyn. 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 Paroxsymal Afib s/p pacemaker, Hypothyroidism - on levothyroxine, Brief Hospital Course Allergies Allergies Coded Allergies Type Severity Reaction Last Updated Verified No Known Drug Allergies 03/03/16 No Vital Signs Vital Signs Date Time Temp Pulse Resp B/P (MAP) Pulse Ox O2 Delivery O2 Flow Rate FiO2 09/18/21 07:57 Room Air 09/18/21 07:00 98.3 74 16 126/72 (90) 97 98.3 Lab Results Laboratory Tests Test 09/17/21 07:05 White Blood Count 8.0 x10^3/uL (4.0-11.0) Red Blood Count 4.39 x10^6/uL (3.50-5.40) Hemoglobin 13.1 g/dL (12.0-15.5) Hematocrit 39.3 % (36.0-47.0) Mean Corpuscular Volume 89 fL (79-100) Mean Corpuscular Hemoglobin 30 pg (25-35) Mean Corpuscular Hemoglobin Concent 33 g/dL (31-37) Red Cell Distribution Width 14.8 % (11.5-14.5) Platelet Count 170 x10^3/uL (140-400) Neutrophils (%) (Auto) 87 % (31-73) Lymphocytes (%) (Auto) 10 % (24-48) Monocytes (%) (Auto) 3 % (0-9) Eosinophils (%) (Auto) 1 % (0-3) Basophils (%) (Auto) 0 % (0-3) Neutrophils # (Auto) 6.9 x10^3/uL (1.8-7.7) Lymphocytes # (Auto) 0.8 x10^3/uL (1.0-4.8) Monocytes # (Auto) 0.2 x10^3/uL (0.0-1.1) Eosinophils # (Auto) 0.1 x10^3/uL (0.0-0.7) Basophils # (Auto) 0.0 x10^3/uL (0.0-0.2) Sodium Level 136 mmol/L (136-145) Potassium Level 5.0 mmol/L (3.5-5.1) Chloride Level 105 mmol/L (98-107) Carbon Dioxide Level 25 mmol/L (21-32) Anion Gap 6 (6-14) Blood Urea Nitrogen 28 mg/dL (7-20) Creatinine 1.1 mg/dL (0.6-1.0) Estimated GFR (Cockcroft-Gault) 47.0 BUN/Creatinine Ratio 25 (6-20) Glucose Level 127 mg/dL (70-99) Calcium Level 8.1 mg/dL (8.5-10.1) Total Bilirubin 0.9 mg/dL (0.2-1.0) Aspartate Amino Transf (AST/SGOT) 10 U/L (15-37) Alanine Aminotransferase (ALT/SGPT) 35 U/L (14-59) Alkaline Phosphatase 75 U/L (46-116) Total Protein 6.2 g/dL (6.4-8.2) Albumin 2.4 g/dL (3.4-5.0) Albumin/Globulin Ratio 0.6 (1.0-1.7) Thyroid Stimulating Hormone (TSH) 2.643 uIU/mL (0.358-3.74) Brief Hospital Course Ms. Temple is a 85 old admit with acute abd pain, GI and gen surg consult pain better, advance diet slowly weakness, should use a cane, Discharge Information Condition at Discharge: Improved Follow Up: Weeks Disposition/Orders: D/C to Home w/ HH Scheduled Dronedarone Hcl (Multaq) 400 Mg Tablet, 1 TAB PO BID for antiarrythmic, #180 Ref 1 (Reported) Entered as Reported by: Linda Ram on 08/04/21 1021 Levothyroxine Sodium (Levothyroxine Sodium) 25 Mcg Tablet, 1 TAB PO DAILY, #30 Ref 5 (Reported) Entered as Reported by: Shelley Granados on 03/03/16 8549 Multivits-Min/Iron/FA/Lutein (Centrum Silver Women Tablet) 1 Each Tablet, 1 TAB PO DAILY for Supplement, (Reported) Entered as Reported by: ANTHONY CRISOSTOMO on 12/04/18 0843 Scheduled PRN Ibuprofen (Advil) 200 Mg Capsule, 200 MG PO PRN PRN for PAIN, (Reported) Entered as Reported by: SHAISTA SETHI on 09/08/21 1031 Discontinued Medications Hydrocodone Bit/Acetaminophen (Hydrocodone-Apap 5-325 ) 1 Tab Tablet, 0.5 TAB PO PRN Q6HRS PRN for PAIN, Ref 0 (Reported) Entered as Reported by: ANTHONY CRISOSTOMO on 12/04/18 0843 Justicifation of Admission Dx: Justifications for Admission: Justification of Admission Dx: N/A JEOVANY VAZQUEZ MD Sep 18, 2021 11:03
--- NOTE | 2021-09-18 11:40 | NUR ---
Discharge Note: JONO LOMAX GATES Discharge instructions and discharge home medications reviewed with Patient and spouse and a copy given. All questions have been answered and understanding verbalized. The following instructions and handouts were given: activity, diet, medications, follow up appointments. Discontinued lines and drains: IV line in left AC removed, catheter tip intact. Patient discharged to home with home health with , wheelchair used for mobility to discharge vehicle.
== END 2021-09-18 11:40 | disposition home health service (06) | DRG 300 ==
LOC: 4 NORTH 15:17
PROVIDERS: ADMIT Internal Medicine; ATTEND Internal Medicine
DX: I70.0 Atherosclerosis of aorta (principal); K56.600 Partial intestinal obstruction, unspecified as to cause; E03.9 Hypothyroidism, unspecified; F03.90 Unspecified dementia, unspecified severity, without behavioral disturbance, psychotic disturbance, mood disturbance, and anxiety; I48.0 Paroxysmal atrial fibrillation; J43.9 Emphysema, unspecified; J47.9 Bronchiectasis, uncomplicated; K57.30 Diverticulosis of large intestine without perforation or abscess without bleeding; N28.1 Cyst of kidney, acquired; Z20.822 Contact with and (suspected) exposure to COVID-19; Z85.118 Personal history of other malignant neoplasm of bronchus and lung; Z86.73 Personal history of transient ischemic attack (TIA), and cerebral infarction without residual deficits; Z92.3 Personal history of irradiation; Z95.0 Presence of cardiac pacemaker
CPT/HCPCS: 36415; 80053; 84443; 85025; J1644; J2543; J3480; 97116-GP; 97530-GP; G0378

== ENCOUNTER → 2021-10-11 | Outpatient (CLI) | payer MEDICARE, OTHER ==
[2021-09-18 11:00] VITALS: BP 132/72
[~2021-10-11] MED LIST changes: +DEXAMETHASONE PRES.FREE 10 MG/ML VIAL. ONE; +IOHEXOL 180 MG/ML 10 ML VIAL. ONE
--- NOTE | 2021-10-11 14:35 | PDOC ---
Progress Note - Pain Clinic Date of Service: DOS: DATE: 10/11/21 TIME: 14:32 Diagnosis: Dx: Thoracic radiculopathy with thoracic compression fracture of T8 History or Present Illness: HPI: 85-year-old female returns for follow-up status post thoracic epidural steroid injection x1. Patient reports about 50% better her left side is completely better but the right side now is hurting and radiating to the right lateral flank and mid axillary line on the right side only patient reports the left side is cleared up completely but the right side is significantly tender with radiation on the right side patient reports initially the left side was much worse but now it is on the right side patient reports it is a 10 on scale 10 is worst in the past week 6 on average of 3 to [place] is a 6 today. Patient reports no new motor or sensory deficits no bowel bladder incontinence but significant pain and aching better in the morning but when she gets up and around the pain begins to increase patient reports wakes her from sleep occasionally but not most nights when she is fairly comfortable with laying flat patient reports no bowel or bladder incontinence. Physical Exam: VS: Blood pressure is 124/60 pulse 71 respirations 18 temperature 97.5 F weight is 131 pounds. PE: PHYSICAL EXAMINATION: GENERAL: The patient is awake, alert, oriented, appropriate, very pleasant in demeanor HEENT: Shows normocephalic, atraumatic. Extraocular movements are intact and symmetrical. Oral cavity: Mucous membranes moist and pink. Dentition is intact. NECK: Shows anterior throat supple without palpable lymphadenopathy noted. Swa llow reflex symmetrical. CHEST: Shows normal on inspection. Breath sounds are clear bilaterally, distant but no rales or rhonchi. HEART: Shows S1, S2 clear. No murmurs auscultated. ABDOMEN: Soft, nontender, nondistended. No palpable organomegaly is noted. BACK: Shows spine grossly in the midline. Normal-appearing cervical lordotic curvature. There is slightly increased thoracic kyphosis, some minor flattening of the lumbar lordotic curvature. Thoracic paraspinous muscles show symmetrical with inspection on palpation some moderate tenderness diffusely more on the right than the left in the mid to upper distribution of the thoracic paraspinous musculature, moderate tenderness over the spinous processes in the same region as well roughly over the area of compression fracture T8 but without radiation. Lumbar paraspinous muscles show symmetrical on inspection, on palpation shows some moderate tenderness diffusely throughout the upper, middle and lower distribution of the paraspinous muscles, but without specific trigger points, without radiation of pain. The patient has good rotational motion of the lumbar spine, both laterally as well as extension and flexion without significant difficulty. EXTREMITIES: Lower extremities show deep tendon reflexes 2+ in the patellar and tendo calcaneus tendons. Motor exam is 5 on a scale of 5 with right dorsiflexion, extension, quadriceps and hamstring flexion and 5/5 on the left. Peripheral pulses are 1+ posterior tibial. No peripheral edema is noted bilaterally. Lower extremities are warm and dry to touch, equal in color and appearance. SKIN: Shows warm and dry, good turgor. No edema. No sores, rashes or bruising throughout. Procedure: Procedure: Options were discussed with the patient. Patient's old chart was reviewed as her current medication regimen updated current review of systems updated today as well. We will proceed with a thoracic epidural steroid injection today with fluoroscopic guidance. Risks were discussed including but not limited to: Bleeding, infection, possibility of epidural hematoma and subsequent neurological compromise, dural puncture, headaches, spinal cord and/or nerve damage, side effects of steroid medication, and poor results regarding pain control. Patient understands and wished to proceed. Patient will return to clinic in approximately 2 weeks for follow-up, was counseled as to return appointment, activity level, and side effect to be aware of. Medication Injected: Med Injected: Procedure is thoracic epidural steroid injection under local anesthetic using sterile prep and drape at the T7-8 level using C-arm fluoroscopic guidance in both AP and lateral views medications injected is 20 mg dexamethasone +10mL preservative-free normal saline and 2 mL contrast- condition at discharge is stable patient tolerated procedure well had no complications. Condition at Discharge: Condition at Discharge: Patient at discharge is stable, patient tolerated procedure well and had no complications. RAJI RICKS MD Oct 11, 2021 14:35
--- NOTE | 2021-10-11 14:36 | PDOC4 ---
Procedure Note: ICD 10 Code: ICD 10 Code: M54.14 S22.060 A Procedure Note: Patient was consented for thoracic epidural steroid injection with fluoroscopic guidance. recentRisks were discussed including but not limited to: Bleeding, infection, possibility of epidural hematoma and subsequent neurological compromise, dural puncture, headaches, spinal cord and/or nerve damage, side effects of steroid medication, and poor results regarding pain control. Patient understands and wished to proceed. Procedure is thoracic epidural steroid injection under local anesthetic using sterile prep and drape at the T7-8 level using C-arm fluoroscopic guidance in both AP and lateral views medications injected is 20 mg dexamethasone +10mL preservative-free normal saline and 2 mL contrast- condition at discharge is stable patient tolerated procedure well had no complications. RAJI RICKS MD Oct 11, 2021 14:36
== END | disposition home or self-care (01) ==
LOC: PNCL 13:36
PROVIDERS: ATTEND Anesthesiology
DX: S22.060A Wedge compression fracture of T7-T8 vertebra, initial encounter for closed fracture (principal); M54.14 Radiculopathy, thoracic region; I48.91 Unspecified atrial fibrillation; I10 Essential (primary) hypertension; E03.9 Hypothyroidism, unspecified; Z85.3 Personal history of malignant neoplasm of breast; Z87.891 Personal history of nicotine dependence; Z79.899 Other long term (current) drug therapy; Z98.890 Other specified postprocedural states; X58.XXXA Exposure to other specified factors, initial encounter; Y93.89 Activity, other specified; Y92.89 Other specified places as the place of occurrence of the external cause; Y99.8 Other external cause status
CPT/HCPCS: 62321; J1100; Q9965

== ENCOUNTER → 2021-11-01 | Outpatient (CLI) | payer MEDICARE, OTHER ==
[~2021-11-01] MED LIST changes: -DEXAMETHASONE PRES.FREE 10 MG/ML VIAL. ONE; -IOHEXOL 180 MG/ML 10 ML VIAL. ONE
--- NOTE | 2021-11-01 14:20 | PDOC ---
Progress Note - Pain Clinic Date of Service: DOS: DATE: 11/01/21 TIME: 14:16 Diagnosis: Dx: Thoracic radiculopathy Thoracic compression fracture T8 History or Present Illness: HPI: 85-year-old female returns for follow-up status post thoracic epidural steroid injection x2. Patient reports about 80% improvement is increase her activities greater ease and comfort is doing household activities distance walking sleeping better with out disturbance from sleep and increase in activities fairly significantly without any significant deficits, patient still has pain she reports but is a 5 scale 10 at its worst 4-5 on average 0 at its least, and is a 4 today. Patient report it is aching and stabbing in the mid upper back but very manageable at this time after her last injection. Patient reports still some low back pain on the right side and the right hip but again this is less severe as it was previously as well. Patient reports no bowel or bladder incontinence. Patient is very pleased with her progress thus far and has been increasing her daily activities with much greater ease and comfort as well. Physical Exam: VS: Blood pressure is 146/73 pulse 73 respirations 18 temperature is 98.2 F height is 5 foot 9 inches weight is 133 pounds PE: PHYSICAL EXAMINATION: GENERAL: The patient is awake, alert, oriented, appropriate, very pleasant in demeanor, patient accompanied by her and son. HEENT: Shows normocephalic, atraumatic. Extraocular movements are intact and symmetrical. Oral cavity: Mucous membranes moist and pink. NECK: Shows anterior throat supple without palpable lymphadenopathy noted. Swallow reflex symmetrical. CHEST: Shows normal on inspection. Breath sounds are clear bilaterally. HEART: Shows S1, S2 clear. No murmurs auscultated. ABDOMEN: Soft, nontender, nondistended. No palpable organomegaly is noted. No rebound or guarding demonstrated. BACK: Shows spine grossly in the midline. Normal-appearing cervical lordotic curvature. There is slightly increased thoracic kyphosis, some minor flattening of the lumbar lordotic curvature. Thoracic paraspinous muscles show symmetrical inspection on palpation also very minimally tender in the mid upper distribution of the paraspinous musculature without asymmetry without trigger points or radiation. Patient shows good rotation of motion both laterally as well as extension and flexion of the thoracic spine without significant difficulty as well. Lumbar paraspinous muscles show symmetrical on inspection, on palpation shows some moderate tenderness diffusely throughout the upper, middle and lower distribution of the paraspinous muscles, without specific trigger points, without radiation of pain. The patient has good rotational motion of the lumbar spine, both laterally as well as extension and flexion without significant difficulty. EXTREMITIES: Lower extremities show deep tendon reflexes 2 in the patellar and tendo calcaneus tendons. Motor exam is 5 on a scale of 5 with right dorsiflexion, extension, quadriceps and hamstring flexion and 5/5 on the left. Peripheral pulses are 1+ posterior tibial. No peripheral edema is noted bilaterally. Lower extremities are warm and dry. SKIN: Shows warm and dry, good turgor. No edema. No sores, rashes or bruising throughout. Procedure: Procedure: Options were discussed with the patient. Patient's old chart was reviewed as was her current medication regimen updated current review of systems updated today as well. We will hold on any further injections at this time as patient is doing significantly better. We encourage patient to maintain activity stretching strengthening exercises we discussed as well as will prescribe new medication of Medrol dose pack, patient was given instructions as well as side effects beware with the medication. Patient will follow up after medication is completed. Medication Injected: Med Injected: None Condition at Discharge: Condition at Discharge: Condition at discharge is stable. RAJI RICKS MD Nov 01, 2021 14:20
== END | disposition home or self-care (01) ==
LOC: PNCL 13:19
PROVIDERS: ATTEND Anesthesiology
DX: M54.14 Radiculopathy, thoracic region (principal); M48.54XA Collapsed vertebra, not elsewhere classified, thoracic region, initial encounter for fracture; I10 Essential (primary) hypertension; I48.91 Unspecified atrial fibrillation; E03.9 Hypothyroidism, unspecified; Z87.891 Personal history of nicotine dependence; Z79.899 Other long term (current) drug therapy; Z98.890 Other specified postprocedural states
CPT/HCPCS: 99212; G0463